=== PATIENT | female | born 1985 | race Hispanic/Latino ===

== ENCOUNTER 2016-09-02 06:19 | Day surgery (SDC) | payer OTHER ==
[2016-09-01 08:49] VITALS: BMI 21.1
[2016-09-02 07:08] LABS: HEMATOCRIT 37.4 % (34.0-47.0); MEAN CELL VOLUME 90.4 fl (81.0-99.0); MEAN CORPUSCULAR HEMOGLOBIN 31.5 pg (27.0-31.0); MEAN CORPUSCULAR HGB CONC 34.8 g/dL (33.0-37.0); RED CELL DISTRIBUTION WIDTH 12.7 % (11.5-14.5); WHITE BLOOD COUNT 6.7 K/uL (4.8-10.8)
[2016-09-02] MEDS ORDERED: Lactated Ringer's 1,000 ML IV ONE ×2 (08:00→09:40)
[2016-09-02] MEDS ORDERED: Propofol 10 mg/ml Inj (20 ML) ONE (09:18)
[2016-09-02] MEDS ORDERED: ePHEDrine 50 mg/ml Inj ONE (09:18)
[2016-09-02] MEDS ORDERED: Succinylcholine 200 mg/10 ml Inj IV ONE (09:19)
[2016-09-02] MEDS ORDERED: Dexamethasone 4 mg/1 ml ONE (09:19)
[2016-09-02] MEDS ORDERED: Midazolam 2 MG/2 ML VIAL ONE (09:19)
[2016-09-02] MEDS ORDERED: Lidocaine 4% (Laryng-O-Jet) Kit MM ONE (09:19)
[2016-09-02] MEDS ORDERED: Rocuronium 10 mg/ml (5 ml) ONE (09:19)
[2016-09-02] MEDS: Bupivacaine 0.5% Inj(30mL) ONE ×2 (10:04→11:00)
[2016-09-02] MEDS ORDERED: Neostigmine Methylsulfate 2 MG/2 ML ML IV ONE (10:47)
[2016-09-02] MEDS ORDERED: Lactated Ringer's 1,000 ML IV SCH (11:22)
[2016-09-02] MEDS ORDERED: HYDROmorphone 0.5 mg/0.5 ml ISec IVP PRN (11:22)
[2016-09-02] MEDS ORDERED: Oxycodone/Acetaminophen 5/325 mg Tab PO PRN (12:09)
[2016-09-02] MEDS ORDERED: Oxycodone/Acetaminophen 5/325 mg Tab PO ONE (13:53)
[2016-09-02 15:14] VITALS: RESP 18
[2016-09-02] MEDS ORDERED: Scopolamine 1.5 mg/24 hr Patch TD ONE (15:17)
[2016-09-02 16:22] VITALS: BP 126/81; PULSE 86; TEMP 98.3; O2SAT 99
--- NOTE | 2016-09-06 19:05 | OP ---
PROCEDURE DATE: 09/02/2016 PREOPERATIVE DIAGNOSES: Dysmenorrhea, dyspareunia, pelvic pain, rule out endometriosis. POSTOPERATIVE DIAGNOSES: Dysmenorrhea, dyspareunia, pelvic pain, rule out endometriosis, plus endometriosis. PROCEDURES PERFORMED: Hysteroscopy, diagnostic; cystoscopy with catheterization of both bilateral ureters with injection of IC-Green dye retrograde retrograde, de Juliet Xi operative laparoscopy, bilateral ureterolysis , excision of endometriosis. Additionally there is an excision of anterior sigmoid endometriosis by Dr. Erwin Bryan from general surgery. SURGEON: Rashard Zamora MD ARTISTS' MODEL: Erwin Bryan MD ANESTHESIA: General endotracheal. ESTIMATED BLOOD LOSS: Minimal. COMPLICATIONS: None. SAMPLES: Multiple biopsies and samples containing endometriosis sent to pathology. DESCRIPTION OF PROCEDURE: After adequate anesthesia was obtained, the patient was placed in the dorsal lithotomy position. She was prepped and draped. The surgeon was gowned and gloved. At this point, attention was on the bladder area where a cystoscope was inserted into the bladder. Both ureteral ostia were visualized and they were cannulated with a 5-[place] stent; 2.5 mL of IC- Green were injected in each ureter. At this point, the rest of the bladder was visualized. There appeared to be no evidence of cystitis cystica or any other abnormality. At this point, the cystoscope was removed and attention was in the vaginal area where the anterior lip of the cervix was grasped. The cervix was gently dilated and a hysteroscope was inserted in the uterine cavity revealing a normal-appearing cavity of the uterus. A uterine manipulator was placed in the uterus and attention was on the abdomen. After re-gowning and re- gloving, an incision was made on the umbilicus and through this incision is carried down all the way down to the fascia which was then incised and the peritoneum was entered without any difficulty with an open laparoscopy type technique. An 8 mm blunt trocar was then inserted. The abdomen was insufflated. Under direct visualization, additional 3 trocars were inserted: Left lower quadrant 8 mm, left midquadrant 5 mm, and right lower quadrant 8 mm. At this point, the da Juliet robot was brought into the field and carefully docked in position. The findings were as follows: There was evidence of extensive inflammatory changes in the pelvis with free fluid. The peritoneum appeared to be overall erythematous and red. The anterior part of the bladder reflection was inspected appearing to be normal. Both ovaries appeared to be of normal size. At this point, attention was first on the right hand side of the pelvic sidewall where an erythematous area and inflamed area was identified. The ureter was identified utilizing fluorescence. The peritoneum was lifted. The retroperitoneal space was lifted up, the ureter pushed out of the way, and a wide area of peritoneum was excised without any complication in a very gentle, careful way. At this point, attention was on the right hand side , which the most affected side. The ureter was identified utilizing fluorescent IC-Green technology. The retroperitoneal space was entered. The ureter was progressively lateralized. Great attention was made not to damage the left vessels or nerves bundles, and a progressive dissection was performed excising a large area of inflamed tissue possibly containing endometriosis. Additional dissection was performed obtaining a large swath of right peritoneal sidewall inflamed disease. It was checked for hemostasis that appeared to be excellent. At this point Dr. Yang proceeded with excision of a anterior rectal serosal lesion. At this point, the da Juliet robot was undocked. The abdomen was desufflated. The instruments were removed. The incisions were closed in layers with PDS for the fascia and Monocryl for the skin. The instruments were also removed from the vagina. The cervix was inspected to make sure that it was dry, and small areas of bleeding from the tenaculum were coagulated utilizing a Silvadene stick. At the end of the procedure, all tapes and instrument counts were correct. The patient tolerated the procedure well and was taken to recovery room in excellent condition. Rashard Zamora MD cc: [id number] TT: 09/06/2016 19:04:00 ludwig BURGESS
--- NOTE | 2016-10-04 11:47 | OP ---
PROCEDURE DATE: 09/02/2016 SURGEON: Erwin Bryan MD. FOOD PREP WORKER: Rashard Zamora MD. PROCEDURE PERFORMED: Excision of perirectal endometriosis. PREOPERATIVE DIAGNOSIS: Endometriosis. POSTOPERATIVE DIAGNOSIS: Endometriosis. ANESTHESIA: General. ANESTHESIOLOGIST: Dr. Singh. ESTIMATED BLOOD LOSS: 5 mL. BRIEF HISTORY: This is a 31-year-old woman who had been brought to the operating room by Dr. Rashard Zamora and had already initiated the robotic procedure when he asked me to examine the patient. An ng the course of exploration, he discovered an endometriosis lesion on the rectum. At that point, I took over the robotic instrument, and using blunt and sharp dissection with the electrocautery, the e ndometriosis was excised from the rectal wall using blunt and sharp dissection. The lesion was compl etely relieved, appropriately marked as pathologist's separate specimen. The area in question was ex amined, and hemostasis at this point was deemed adequate. The operation was then turned over to Dr. Zamora (separate dictation Dr. Zamora). Erwin Bryan MD cc: [id number] TT: 10/04/2016 11:47:08 jn
== END 2016-09-02 16:30 | disposition home or self-care (01) ==
LOC: H.OPSURG 06:19
PROVIDERS: ATTEND Obstetrics & Gynecology Reproductive Endocrinology
DX: N80.0 Endometriosis of uterus (principal); F32.9 Major depressive disorder, single episode, unspecified